=== PATIENT | female | born 1995 | race Caucasian/White ===

== ENCOUNTER 2023-03-26 13:37 | Outpatient (CLI) | payer BC, SELFPAY | END 2023-03-26 13:38 | disposition home or self-care (01) | PROVIDERS: PCP Advanced Practice Midwife; Visit Provider Advanced Practice Midwife | DX: Z36.89 Encounter for other specified antenatal screening (principal); O36.0130 Maternal care for anti-D [Rh] antibodies, third trimester, not applicable or unspecified; Z3A.00 Weeks of gestation of pregnancy not specified | CPT/HCPCS: 36415; 85461; 86850; 86900; 86901; 90384; J2790 ==

== ENCOUNTER 2023-03-27 10:23 | Outpatient (CLI) | payer BC, SELFPAY ==
[2023-03-27] MEDS: RHO(D) IMMUNE GLOBULIN 300 MCG/2 ML SYRINGE IM (11:20)
[2023-03-27 11:55] LABS: Hematocrit 33.4 % (37.0-47.0); Hemoglobin 11.4 g/dL (12.0-15.0)
[2023-03-27 12:14] LABS: Glucose 1 Hour PP 50gm Dose 93 mg/dL
[2023-03-27 12:52] LABS: HIV 1/2 Ab P24 Ag Result Negative (Negative)
== END 2023-03-27 10:24 | disposition home or self-care (01) ==
LOC: ANHLAB 10:27
PROVIDERS: PCP Advanced Practice Midwife; Visit Provider Advanced Practice Midwife
DX: Z36.89 Encounter for other specified antenatal screening (principal); O36.0130 Maternal care for anti-D [Rh] antibodies, third trimester, not applicable or unspecified; Z3A.00 Weeks of gestation of pregnancy not specified
CPT/HCPCS: 36415; 82947; 85014; 85018; 86703; 90384; G0432; J2790

== ENCOUNTER 2023-03-30 12:16 | Outpatient (CLI) | payer BC, SELFPAY ==
[2023-04-06 10:32] LABS: Collection Sample Venous; Lead, Blood <1.0
== END 2023-03-30 12:17 | disposition home or self-care (01) ==
LOC: ANHLAB 12:18
PROVIDERS: PCP Advanced Practice Midwife; Visit Provider Obstetrics & Gynecology
DX: Z77.011 Contact with and (suspected) exposure to lead (principal)
CPT/HCPCS: 36415; 83655

== ENCOUNTER 2023-05-29 12:52 | Outpatient (CLI) | payer BC, SELFPAY ==
[2023-05-29 15:05] VITALS: BP 132/79; PULSE 84
== END 2023-05-29 15:05 | disposition home or self-care (01) ==
PROVIDERS: Visit Provider Obstetrics & Gynecology
DX: O42.90 Premature rupture of membranes, unspecified as to length of time between rupture and onset of labor, unspecified weeks of gestation (principal); Z3A.00 Weeks of gestation of pregnancy not specified
CPT/HCPCS: 59025; 84112

== ENCOUNTER 2023-06-10 11:15 | Inpatient (IN) | payer BC, SELFPAY ==
[2023-06-10] VITALS (139 sets, daily range): BP systolic 76–176; BP diastolic 35–135; PULSE 56–137; RESP 16–20; TEMP 36.6–37; O2SAT 95–100; BMI 35.2
--- NOTE | 2023-06-10 12:30 | LDADM ---
This patient, Dayan Cazares, was admitted to Labor/Delivery/Recovery 105 on 06/10/23 at 11:15. Plans for labor, pain management and were discussed with patient. Patient/family oriented to hospital policies and general routines including ID bracelet, bed and alarms, visiting hours, pain management, procedures, bathroom and other care routines, personal items, smoking policy, room service/diet and guest tray routines, infant security routines, and visiting hours. Patient/Family are encouraged to report perceived risks to care and to ask questions if they do not understand what they are told or what they should do. See OBIX for further documentation.
[2023-06-10 12:36] LABS: Basophils Percent Auto 0.3 % (0.2-1.2); Eosinophils Absolute Auto 0.1 K/mm3 (0-0.3); Eosinophils Percent Auto 0.5 % (0-4.4); Hematocrit 32.6 % (37.0-47.0); Immature Granulocyte Absolute 0.07 K/mm3 (0.00-0.031); Immature Granulocyte Percent A 0.6 % (0-0.5); Lymphocytes Absolute Auto 1.52 K/mm3 (0.9-3.2); Lymphocytes Percent Auto 13.5 % (18.3-44.2); Mean Corpuscular HGB Conc 33.7 g/dl (32-36); Mean Corpuscular Hemoglobin 28.4 pg (26-34); Mean Corpuscular Volume 84.2 fl (80-100); Mean Platelet Volume 10.3 fl (7.4-10.4); Monocytes Absolute Auto 0.6 K/mm3 (0.1-0.6); Neutrophils Percent Auto 80.1 % (45.5-73.1); Platelet Count Result 216 k/mm3 (150-375); Red Blood Count 3.87 M/mm3 (4.2-5.4); Red Cell Distribution Width 13.2 % (11.5-14.5); White Blood Count 11.2 K/mm3 (4.5-10.0)
--- NOTE | 2023-06-10 16:36 | WPDHPUPDATE1 ---
History and Physical Update Update Date/Time: 06/10/23 16:36 28-year-old primiparous female at 40 weeks gestation presents in early labor. Artificial rupture membranes was performed. 3 cm cervix, 70%, -1. Reassuring heart tones. History and Physical has been reviewed, including an updated exam of the patient. There are NO changes in the patient's condition. Risks, benefits, and alternatives have been discussed and questions answered. Patient agrees to proceed with procedure.
[2023-06-10] MEDS: LACTATED RINGERS 1,000 ML 125 ML IV CONT ×3 (16:56→19:24)
[2023-06-10] MEDS: OXYTOCIN 30 UNITS/NS 500 ML 30 UNITS/500 ML BAG IV CONT (17:00)
--- NOTE | 2023-06-10 18:28 | WPDANESEPPF ---
Anes - Initial Pre Proc Eval Procedure: Labor epidural Date/Time: 06/10/23 18:08 Surgeon: Carla Sosa MD Pre Op Diagnosis: Labor pain Pre Op Diagnosis: Labor Patient Data Age: 28 Gender: F Height: 1.65 m Weight: 96 kg Last Vital Signs Temp 36.8 C 06/10/23 18:01 Pulse 74 06/10/23 18:26 Resp 20 06/10/23 18:01 BP 112/71 06/10/23 18:26 Pulse Ox 95 06/10/23 18:27 O2 Del Method Room Air 06/10/23 12:30 Allergies Allergy/AdvReac Type Severity Reaction Status Date / Time No Known Allergies Allergy Verified 05/18/23 15:30 Home Medications Medication Instructions Recorded Confirmed Type vits no.126-ferrous fum 1 tablet PO DAILY 05/18/23 06/10/23 History 28 mg iron-folic acid 800 mcg tablet (Classic ) Laboratory Tests 06/10/23 12:27 WBC 11.2 H K/mm3 (4.5-10.0) RBC 3.87 L M/mm3 (4.2-5.4) Hgb 11.0 L g/dL (12.0-15.0) Hct 32.6 L % (37.0-47.0) MCV 84.2 fl (80-100) MCH 28.4 pg (26-34) MCHC 33.7 g/dl (32-36) RDW 13.2 % (11.5-14.5) Plt Count 216 k/mm3 (150-375) MPV 10.3 fl (7.4-10.4) Immature Gran % (Auto) 0.6 H % (0-0.5) Neut % (Auto) 80.1 H % (45.5-73.1) Lymph % (Auto) 13.5 L % (18.3-44.2) [place] % (Auto) 5.0 % (2.6-8.5) Eos % (Auto) 0.5 % (0-4.4) Baso % (Auto) 0.3 % (0.2-1.2) Lymph # (Auto) 1.52 K/mm3 (0.9-3.2) [place] # (Auto) 0.6 K/mm3 (0.1-0.6) Eos # (Auto) 0.1 K/mm3 (0-0.3) Baso # (Auto) 0.0 K/mm3 (0.0-0.1) Abs Immat Gran (auto) 0.07 H K/mm3 (0.00-0.031) Absolute Neuts (auto) 9.0 H K/mm3 (1.3-6.7) Absolute Nucleated RBC 0.0 K/mm3 (0.0-0.012) Nucleated RBC % 0.0 % (0.0-0.2) RPR Pending Blood Type O Negative Antibody Screen Positive Antibody Identification Passive Due to RH Imm Glob Antigen Identification Cancelled RYLAN, IgG Interpret Not Performed RYLAN, Poly Interpret Neg RYLAN, Complement Interp Not Performed Patient hx anesthesia problems: none Family hx anesthesia problems: none Results Review: All pre-operative results and documents have been reviewed as part of the pre-operative evaluation. [facility] Family History Family History Sibling Diabetes mellitus Grandparent Hypertension Social History Social History Smoking status: Never smoker Second hand tobacco smoke exposure: No Substance use: never Lack of Transportation: No Lack of Food: Never True Current Housing: I Have Housing Concerned About Future Housing: No Difficulty Paying Gas/Electric Bills: No Difficulty Paying for Meds: No Currently Unemployed: No Education: Bachelor's Degree Difficulty w/ Childcare or Family Care: No Spiritual care concerns: No Anes - Eval Final PreProcedure Day of Procedure 06/10/23 18:28 Patient weight: obese Heart: regular rate and rhythm Lungs: clear to auscultation ASA classification: II Anesthetic plan: proceed Anesthesia type and monitoring: regional epidural and standard monitoring Results Review: All pre-operative results and documents have been reviewed as part of the pre-operative evaluation. Informed Consent: The patient's anesthetic plan and its attendant risks and benefits were discussed with the patient/family/POA. Questions were solicited and answers provided to the satisfaction of the patient/family/POA.
--- NOTE | 2023-06-10 18:31 | WPDANESEPN ---
Anes - Epidural Procedure Note Date/Time: 06/10/23 18:31 Consent: I have discussed with the patient/family/POA, the placement of an epidural catheter and the use of epidural narcotic/local anesthetic for labor analgesia and/or postoperative pain management, including associated potential risks, benefits, complications and side effects. I have discussed alternative methods of labor analgesia and/or postoperative pain management. The patient/family/POA, understand(s) and wish(es) to proceed with epidural narcotic/local anesthetic for labor analgesia and/or postoperative pain management. Time-Out: A pre-procedural Time-Out was completed immediately before starting the procedure and confirmed: Patient Identification, Site, Procedure, Patient Position and the Availability of Requisite Equipment. Clinical Indications: Labor Pain Epidural Insertion Note Patient position: sitting Skin prep: chlorhexidine and sterile drape Needle: 17g Tuohy Catheter: 19g Arrow FlexTip Plus Technique: Loss of resistance. Level of insertion: L4/5 Catheter skin nadya (cm): 9 Length in epidural space (cm): 4 Skin anesthesia: lidocaine 1% Test dose: 1.5% Lidocaine with 1:[id number] Epi, negative for subarachnoid Inj and negative for intravascular Inj Time of test dose: 18:21 Observations: tolerated well Complications: none
[2023-06-10] MEDS: OXYTOCIN 30 UNITS/NS 500 ML 30 UNITS/500 ML BAG 125 UNITS IV CONT (23:52)
--- NOTE | 2023-06-10 23:56 | PM.OBPRVD ---
OB - Delivery Note Procedure Delivery date: 06/10/23 Procedure: Induction method: AROM and Per Pitocin Protocol Delivery monitor: External FHT and Internal Uterine Route of delivery: Laceration Description: Periurethral and Perineal - 2nd Degree Delivery repair: vicryl Quantitative Blood Loss (ml): 125 Anesthesia type: Epidural Disposition: Floor Narrative: With adequate expulsive efforts by the mother, the baby's head was delivered OA. The baby's anterior shoulder was delivered under the pubic symphysis without difficulty. The posterior shoulder and the rest of the baby delivered without difficulty. The infant was placed on the mothers chest and suctioned and stimulated. The cord was clamped and cut after 30 seconds. Mother and baby both stable. Baby Date of : 06/10/23 Time of : 23:09 Weeks of gestation at delivery: 40 Infant gender: Male Weight (pounds): 7 Weight (ounces): 14 presentation: vertex Placenta delivery description: Spontaneous Cord Vessel Description: 3 Vessels, Nuchal Cord and Delayed Cord Clamping score one minute: 8 score five minutes: 9
[2023-06-11] VITALS (32 sets, daily range): BP systolic 105–127; BP diastolic 56–76; PULSE 72–95; RESP 16–18; TEMP 36.8–37.3; O2SAT 97–99
[2023-06-11] MEDS: IBUPROFEN 600 MG TABLET PO ×3 (02:57→22:52)
--- NOTE | 2023-06-11 07:45 | PM.OBPNVD ---
OB - PN: Subj Subjective Date/time seen: 06/11/23 07:45 Patient comments: no complaints and pain well controlled baby status: doing well [place] feeding status: exclusively breast feeding Narrative: baby doing well, off of CPAP. OB - PN: Obj Data Labs 06/10/23 12:27 Labs: Laboratory Results - last 24 hr 06/10/23 12:27 WBC 11.2 H RBC 3.87 L Hgb 11.0 L Hct 32.6 L MCV 84.2 MCH 28.4 MCHC 33.7 RDW 13.2 Plt Count 216 MPV 10.3 Immature Gran % (Auto) 0.6 H Neut % (Auto) 80.1 H Lymph % (Auto) 13.5 L [place] % (Auto) 5.0 Eos % (Auto) 0.5 Baso % (Auto) 0.3 Lymph # (Auto) 1.52 [place] # (Auto) 0.6 Eos # (Auto) 0.1 Baso # (Auto) 0.0 Abs Immat Gran (auto) 0.07 H Absolute Neuts (auto) 9.0 H Absolute Nucleated RBC 0.0 Nucleated RBC % 0.0 Blood Type O Negative Antibody Screen Positive Antibody Identification Passive Due to RH Imm Glob Antigen Identification Cancelled RYLAN, IgG Interpret Not Performed RYLAN, Poly Interpret Neg RYLAN, Complement Interp Not Performed OB - PN A/P Plan day: 1 Plan: routine care Comments: circumcision tomorrow home tomorrow Time Spent With Patient Time: Total time spent is greater than 50% in coordination of care (as documented) at patient's floor/unit and/or counseling patient: Time with patient: less than 15 minutes Exam Narrative: NAD abdomen soft, nontender, fundus firm below the umbilicus Extremities nontender, 1+ edema
[2023-06-11] MEDS: WITCH HAZEL 40 PADS 1 PAD TOPICAL (09:15)
[2023-06-11] MEDS: MULTIVIT/MIN/PREN/FOL AC/IRON TABLET 1 TAB PO (09:15)
[2023-06-11] MEDS: DOCUSATE SODIUM 100 MG CAPSULE PO ×2 (09:15→17:15)
[2023-06-11] MEDS: ACETAMINOPHEN 325 MG TABLET 650 MG PO ×2 (12:30→20:26)
[2023-06-11 13:50] LABS: Rapid Plasma Reagin Non-Reactive (NonReactive)
--- NOTE | 2023-06-11 13:53 | PC.NURSE ---
Addendum entered by Indira Joiner RN 06/11/23 13:59: Reviewed the pie demonstration as a tool for understanding appropriate output, blood sugar, weight and jaundice. Original Note: This morning report was received to update LC on mother's progress so far. 1133 - Pt is sleeping. [id number] Request was made for a consult. Introductions were made, then consulted with patient to assess needs related to . Mother led the conversation with her?plans to feed?her and the?experience so far. Mother works well with her infant with encouragement and education. Encouraged understanding of the benefits of skin to skin (demonstrating unwrapping infant and placing upright on her chest), stimulating with massage touch, changing positions to encourage wakefulness, how to watch for early feeding cues, responsive feeding, feeding on demand (aiming for 8-12 times in 24 hours, about every 2-3 hours), milk production, building/maintaining a milk supply, duration of feeding, signs of adequate intake/output and how to record on the feeding sheet. Infant has had two voids and 4 stools since . There have been two successful breast feeds reported since . Blood sugars have remained stable since . is now weaned of D10 and still has an IV. Infant is quiet, alert and awake [id number] on mother, however, he is not demonstrating feeding cues at this time. Education and demonstration of hand expression was reviewed using the tool. Reviewed 2nd 24 hour syndrome and cluster feeding as has not breastfed a lot the first 24 hours so far. Mother voiced understanding of skin to skin, stimulating with massage touch, responsive feedings, hand expressed colostrum, talking to infant to encourage if it has been 2 -2.5 hours since the start of the last , to call if does not latch, or if there is discomfort with . Resources provided for inpatient/outpatient with feeding sheet and the mom/baby guide. Parents voiced understanding of information, demonstrated learning and will call if there is a request for assistance. Reported to the Primary RN.
--- NOTE | 2023-06-11 14:32 | WPDANLDPN2 ---
Anes-Prog Note L&D Date/Time: 06/11/23 14:32 Comfortable throughout: labor and delivery Neuraxial method: epidural Epidural/Spinal procedure site: clean & non-tender Neuro status: Neuro function grossly intact. Cardiovascular status: normal Respiratory status: normal Airway patency: baseline Mental status: baseline Post-Op hydration status: normal Vital Signs: Last Vital Signs Temp 98.5 F 06/11/23 12:15 Pulse 74 06/11/23 12:15 Resp 16 06/11/23 12:15 BP 116/61 06/11/23 12:15 Pulse Ox 99 06/11/23 12:15 O2 Del Method Room Air 06/10/23 12:30 Pain score (VAS): 0/10 I/O: Intake & Output 06/10/23 06/11/23 06/11/23 23:59 07:59 15:59 Intake Total 2000 750 Output Total 125 120 Balance 1875 -120 750 Post-procedural complaints: none Patient feedback: Patient satisfied with anesthetic care.
[2023-06-12] MEDS: ACETAMINOPHEN 325 MG TABLET 650 MG PO (04:13)
[2023-06-12 04:35] LABS: Hematocrit 27.6 % (37.0-47.0); Hemoglobin 8.9 g/dL (12.0-15.0)
--- NOTE | 2023-06-12 07:26 | P.PNOB_ITS ---
OB - PN: Subj Subjective Date/time seen: 06/12/23 07:26 Patient comments: no complaints and pain well controlled baby status: doing well [place] feeding status: exclusively breast feeding OB - PN: Obj Data Labs 06/12/23 04:22 Labs: Laboratory Results - last 24 hr 06/10/23 06/12/23 12:27 04:22 Hgb 8.9 L Hct 27.6 L RPR Non-reactive Blood Type O Negative Antibody Screen TNP Antibody Identification Not Reportable Antigen Identification Not Reportable RYLAN, IgG Interpret Not Performed RYLAN, Poly Interpret Not Performed RYLAN, Complement Interp Not Performed Screen Negative Baby's Blood Type O pos Baby's RYLAN Negative Doses of RhIg Required 1 OB - PN A/P Plan day: 2 Plan: routine care and discharge home Comments: circumcision done after consented. Time Spent With Patient Time: Total time spent is greater than 50% in coordination of care (as documented) at patient's floor/unit and/or counseling patient: Time with patient: less than 15 minutes Exam Narrative: NAD abdomen soft, nontender, fundus firm below the umbilicus Extremities nontender, 1+ edema
--- NOTE | 2023-06-12 07:27 | P.DS_ITS ---
DS: Admitting Diagnosis Discharge Date 06/12/23 Admitting Diagnosis term IUP, labor DS: Discharge Diagnosis Discharge Diagnosis (1) , delivered: Code(s): O80 - Encounter for full-term uncomplicated delivery Status: Acute OB - DS: Summary Hospital Course Hospital Course: Dayan was admitted in labor at 40w. She proceeded to have an uncomplicated vaginal delivery and course. She was discharged home on PPD 2 in stable condition. OB Procedures : Ultrasound OB Procedures Intrapartum: Spontaneous Vag Delivery OB Procedures: : None Peripartum Data Infant Delivery Method: Natural Vaginal complications: none Status at Discharge Functional status at discharge: independent ambulation Time Spent with Patient Time attestation: Total time spent providing and/or coordinating discharge services: Exam Narrative: NAD abdomen soft, appropriately tender Ext non tender, 1+ edema DS: Data Data Completed and Pending Labs on day of discharge: Labs from last 24 hours 06/12/23 06/10/23 04:22 12:27 Hgb 8.9 L Hct 27.6 L RPR Non-reactive Blood Type O Negative Antibody Screen TNP Antibody Identification Not Reportable Antigen Identification Not Reportable RYLAN, IgG Interpret Not Performed RYLAN, Poly Interpret Not Performed RYLAN, Complement Interp Not Performed Screen Negative Baby's Blood Type O pos Baby's RYLAN Negative Doses of RhIg Required 1 Discharge Plan Discharge Attending physician on discharge: Carla Sosa Discharging Clinician: Carla Sosa Anticipated Discharge Date/Time: 06/12/23 07:26 Patient Disposition: Home, Self-Care Activity: pelvic rest Diet: regular Patient Instructions: Antibiotic Form Stand Alone Forms: General Discharge Information Follow-up/Referrals: Carla Sosa MD [Physician] - 4 Weeks Discharge Medications: Continued Classic 28 mg iron- 800 mcg Tablet 1 tablet PO DAILY Date of admission: 06/10/23 11:15 Primary Care Provider: PHYSICIAN,[employer] MACHINE OPERATOR Admitting Provider: Carla Sosa Attending physician on admission: Carla Sosa Condition: Stable
[2023-06-12 07:50] VITALS: BP 117/54; PULSE 80; RESP 18; TEMP 37.1; O2SAT 100
[2023-06-12] MEDS: POLYSACCHARIDE IRON COMPLEX 150 MG CAPSULE PO (08:00)
[2023-06-12] MEDS: DOCUSATE SODIUM 100 MG CAPSULE PO (08:00)
[2023-06-12] MEDS: IBUPROFEN 600 MG TABLET PO (08:00)
[2023-06-12] MEDS: MULTIVIT/MIN/PREN/FOL AC/IRON TABLET 1 TAB PO (08:00)
[2023-06-12] MEDS: WITCH HAZEL 40 PADS 1 PAD TOPICAL (08:00)
[2023-06-12] MEDS: BENZOCAINE 20% AER SPR (*SP) 56 GM CAN 1 SPRAY TOPICAL (09:00)
--- NOTE | 2023-06-12 10:55 | PC.NURSE ---
[phone] Mother led the conversation with her experience and plan to feed her infant so far and her ability to independently latch optimally without discomfort. Mother is feeding appropriately for growth of and understands stimulating to eat if needed. Infant has had appropriate feedings in the last 24 hours meets the outcomes for weight, output and jaundice at this time. Mother states she is confident to continue effectively breastfeed her infant at home, when to call for assistance and denies any additional assistance or education at this time. Reinforced understanding of milk production, transition of milk, signs of adequate intake, transition of stool, prevention/relief of engorgement, responsive watching for feeding cues, the different methods of stimulating infant to breastfeed 2-3 hours after the start of the last feeding, community resources, and when to call a provider using the resource of the mom and baby guide. Mother voiced understanding of the education shared. Reported to the primary RN.
--- NOTE | 2023-06-12 10:58 | PC.NURSE ---
[phone] Introductions were made, then consulted with patient to assess needs related to . Mother led the conversation with her?plans to feed?her and the?experience so far. Reviewed milk production and how to protect her milk supply. Mother has a plan to breastfeed and formula feed and will call if she request assistance or has questions. Resources provided for inpatient and outpatient services with the feeding sheet, mom/baby guide and name written on the white board. Reported to the primary RN.
[2023-06-12] MEDS: RHO(D) IMMUNE GLOBULIN 300 MCG/2 ML SYRINGE IM (13:30)
[2023-06-13 10:31] VITALS: BP 115/71; PULSE 82; RESP 18; TEMP 36.8; O2SAT 100
== END 2023-06-12 13:40 | disposition home or self-care (01) | DRG 807 ==
LOC: ANHLDR 12:23 → ANHOB2 06-11 03:03
PROVIDERS: Admitting Provider Obstetrics & Gynecology; Visit Provider Obstetrics & Gynecology
DX: O69.81X0 Labor and delivery complicated by cord around neck, without compression, not applicable or unspecified (principal); Z37.0 Single live birth; Z3A.40 40 weeks gestation of pregnancy; O70.1 Second degree perineal laceration during delivery
CPT/HCPCS: 36415; 85014; 85018; 85025; 85461; 86592; 86850; 86880; 86900; 86901; 86902; 90384; A9270; J2590; J2790; J2795; J7120

== ENCOUNTER 2024-11-28 10:29 | Outpatient (RCR) | payer BC, SELFPAY ==
[2024-11-28 11:46] LABS: Beta HCG Quantitative 731.23 mIU/ML
[2024-11-30] MEDS: RHO(D) IMMUNE GLOBULIN 300 MCG/2 ML SYRINGE IM (11:03)
== END 2025-02-26 23:59 | disposition home or self-care (01) ==
LOC: ANHLAB 10:29
PROVIDERS: Visit Provider Advanced Practice Midwife
DX: Z29.13 Encounter for prophylactic Rho(D) immune globulin (principal); O20.0 Threatened abortion; O36.0190 Maternal care for anti-D [Rh] antibodies, unspecified trimester, not applicable or unspecified; Z3A.00 Weeks of gestation of pregnancy not specified
CPT/HCPCS: 36415; 84702; 85461; 86850; 86900; 86901; 90384; 96372; J2790

== ENCOUNTER 2024-11-30 10:28 | Outpatient (CLI) | payer BC, SELFPAY | END 2024-11-30 10:29 | disposition home or self-care (01) | LOC: ANHOBOP 10:41 | PROVIDERS: Visit Provider Advanced Practice Midwife | DX: O20.0 Threatened abortion (principal); Z3A.00 Weeks of gestation of pregnancy not specified | CPT/HCPCS: 36415; 84702 ==

== ENCOUNTER 2025-03-25 11:00 | Outpatient (RCR) | payer BC, SELFPAY ==
[2025-03-23 11:19] LABS: Beta HCG Quantitative 15.34 mIU/ML
[2025-03-23] MEDS: RHO(D) IMMUNE GLOBULIN 300 MCG/2 ML SYRINGE IM (12:30)
[2025-03-25 12:15] LABS: Beta HCG Quantitative 7.76 mIU/ML
== END 2025-06-21 23:59 | disposition home or self-care (01) ==
LOC: ANHLAB 11:00
PROVIDERS: Visit Provider Obstetrics & Gynecology
DX: Z29.13 Encounter for prophylactic Rho(D) immune globulin (principal); Z36.89 Encounter for other specified antenatal screening; O36.0130 Maternal care for anti-D [Rh] antibodies, third trimester, not applicable or unspecified; Z3A.00 Weeks of gestation of pregnancy not specified
CPT/HCPCS: 36415; 84702; 85461; 86850; 86900; 86901; 90384; 96372; J2790